=== PATIENT | female | born 1995 | race Asian ===

== ENCOUNTER 2017-05-20 03:45 | Emergency (ER) | payer BC, OTHER ==
[~2017-05-20] VITALS: Ht 170.2 cm; Wt 55.0 kg
[2017-05-20 03:55] VITALS: TEMP 36.6; Ht 170.2 cm; Wt 55.0 kg
[2017-05-20] MEDS ORDERED: SODIUM CHLORIDE 0.9% 1000ML 1,000 ML IV STA (04:04)
[2017-05-20] MEDS ORDERED: ONDANSETRON INJ 2 MG/ML 2 ML VIAL IV STA (04:04)
[2017-05-20 04:36] LABS: BASO % 0.2 %; BASO ABS # 0.03 K/uL (0-0.2); COMPLETE YES; EOS % 0.1 %; HEMATOCRIT 39.6 % (37-47); IG% 0.4 %; LYMPH % 8.4 %; LYMPH ABS # 1.37 K/uL (1.2-3.4); MEAN CELL VOLUME 90.8 fL (80-100); MEAN CORPUSCULAR HEMOGLOBIN 31.7 pg (25-34); MEAN CORPUSCULAR HGB CONC 34.8 g/dl (32-36); MEAN PLATELET VOLUME 9.7 fL (7.4-10.4); MONO % 4.7 %; NEUT % 86.2 %; PLATELET COUNT 237 K/uL (130-400); RED BLOOD COUNT 4.36 M/uL (4.2-5.4); WHITE BLOOD COUNT 16.37 K/uL (4.8-10.8)
[2017-05-20 04:50] LABS: URINE APPEARANCE CLEAR (CLEAR); URINE BILIRUBIN NEG (NEG); URINE COLOR YELLOW; URINE EPITHELIAL CELL AUTO >30 /lpf (0-5); URINE NITRITE NEG (NEG); URINE PH 6.5 (4.5-7.5); URINE SPECIFIC GRAVITY 1.022 (1.000-1.030); UROBILINOGEN NEG (NEG)
[2017-05-20 04:51] LABS: MANUAL MICROSCOPIC REQUIRED? NO; REVIEW REQ? NO
[2017-05-20 05:00] LABS: ALKALINE PHOSPHATASE 68 U/L (45-117); ALT/SGPT 23 U/L (12-78); AST/SGOT 19 U/L (15-37); BLOOD UREA NITROGEN 13 mg/dl (7-18); CALCIUM 8.8 mg/dl (8.5-10.1); CARBON DIOXIDE 26 mmol/L (21-32); CHLORIDE 108 mmol/L (98-107); CREATININE 0.55 mg/dl (0.60-1.20); GLUCOSE 97 mg/dl (70-99); POTASSIUM 3.8 mmol/L (3.5-5.1); SODIUM 141 mmol/L (136-145)
[2017-05-20 06:23] VITALS: BP 122/71; PULSE 76; O2SAT 98
--- NOTE | 2017-05-20 07:51 | EMERGENCY ROOM VISIT NOTE ---
History Report prepared by Nickolas: Geri Arvizu Under the Supervision of: Dr. Angeli Douglas D.O. First contact with patient: 03:53 Chief Complaint: ABDOMINAL PAIN Stated Complaint: ABDOMINAL PAIN History of Present Illness The patient is a 21 year old female who presents to the Emergency Room with complaints of worsening abdominal pain starting five hours ago. The patient states that she ate from the dining landry like normal this evening. She states that shortly after she started to feel bloated. She reports that she noticed the abdominal pain started then. She reports that she then started to have nausea. The patient states that she then started to dry heave. She states that she vomited, but it was a very tiny amount. She reports that she is having a difficult time not dry heaving. The patient states that she had food poisoning once like this that had her dry heaving every 20 minutes. She states that she is unsure if this is another case or from eating too much food. The patient denies diarrhea, fever, chills, leg cramping, and leg swelling. She notes her LNMP was yesterday. She currently rates her pain as a 6/10 in severity. Source of History: patient Onset: five hours ago Position: abdomen Symptom Intensity: 6/10 Quality: other (bloating) Timing: worsening Associated Symptoms: + nausea, + vomiting, No fevers, No chills, No diarrhea Note: The patient complains of dry heaving. The patient denies leg cramping and leg swelling. Review of Systems See HPI for pertinent positives & negatives. A total of 10 systems reviewed and were otherwise negative. Past Medical & Surgical Medical Problems: (1) No Known Active Medical Problems Family History Patient reports no known family medical history. Social History Marital Status: single Housing Status: lives with roommate Occupation Status: [employer] student Current/Historical Medications No Active Prescriptions or Reported Meds Allergies Coded Allergies: Fire Ant (Verified Allergy, Unknown, HIVES, 05/20/17) FACIAL SWELLING Physical Exam Vital Signs Date Time Temp Pulse Resp B/P (MAP) Pulse Ox O2 Delivery O2 Flow Rate FiO2 05/20/17 06:23 76 16 122/71 98 05/20/17 05:07 82 16 101/59 96 Room Air 05/20/17 03:55 36.6 81 18 114/69 96 Room Air Physical Exam HEENT: Head - normocephalic and atraumatic Pupils are equal, round, and reactive to light. Extraocular eye muscles are intact, and sclera are anicteric. Nose - moist nasal mucosa without discharge. Mouth - moist buccal mucosa. Oropharynx is nonerythematous and there is no tonsillar exudate or edema noted. Neck: Supple; no JVD, nuchal rigidity, cervical lymphadenopathy. Heart: Regular rate and rhythm. There is a normal S1 and S2 with no murmurs, clicks, or gallops appreciated. Lungs: Clear to auscultation bilaterally with no wheezes, rales, or rhonchi. Abdomen: Soft, nondistended, with good bowel sounds. Soreness with palpation in epigastrium and periumbilical region. There are no palpable pulsatile masses or hepatosplenomegaly. There is no guarding, rigidity, or rebound noted. Extremities: No evidence of cyanosis, clubbing, or edema. There are easily palpable peripheral pulses. Skin: warm and dry with good turgor and no rashes. Medical Decision & Procedures Laboratory Results 05/20/17 04:20 Red Blood Count 4.36, Mean Corpuscular Volume 90.8, Mean Corpuscular Hemoglobin 31.7, Mean Corpuscular Hemoglobin Concent 34.8, Mean Platelet Volume 9.7, Neutrophils (%) (Auto) 86.2, Lymphocytes (%) (Auto) 8.4, Monocytes (%) (Auto) 4.7, Eosinophils (%) (Auto) 0.1, Basophils (%) (Auto) 0.2, Neutrophils # (Auto) 14.12, Lymphocytes # (Auto) 1.37, Monocytes # (Auto) 0.77, Eosinophils # (Auto) 0.02, Basophils # (Auto) 0.03 05/20/17 04:20 Test 05/20/17 04:20 White Blood Count 16.37 K/uL (4.8-10.8) Red Blood Count 4.36 M/uL (4.2-5.4) Hemoglobin 13.8 g/dL (12.0-16.0) Hematocrit 39.6 % (37-47) Mean Corpuscular Volume 90.8 fL (80-100) Mean Corpuscular Hemoglobin 31.7 pg (25-34) Mean Corpuscular Hemoglobin Concent 34.8 g/dl (32-36) Platelet Count 237 K/uL (130-400) Mean Platelet Volume 9.7 fL (7.4-10.4) Neutrophils (%) (Auto) 86.2 % Lymphocytes (%) (Auto) 8.4 % Monocytes (%) (Auto) 4.7 % Eosinophils (%) (Auto) 0.1 % Basophils (%) (Auto) 0.2 % Neutrophils # (Auto) 14.12 K/uL (1.4-6.5) Lymphocytes # (Auto) 1.37 K/uL (1.2-3.4) Monocytes # (Auto) 0.77 K/uL (0.11-0.59) Eosinophils # (Auto) 0.02 K/uL (0-0.5) Basophils # (Auto) 0.03 K/uL (0-0.2) RDW Standard Deviation 41.3 fL (36.4-46.3) RDW Coefficient of Variation 12.3 % (11.5-14.5) Immature Granulocyte % (Auto) 0.4 % Immature Granulocyte # (Auto) 0.06 K/uL (0.00-0.02) Urine Color YELLOW Urine Appearance CLEAR (CLEAR) Urine pH 6.5 (4.5-7.5) Urine Specific [place] 1.022 (1.000-1.030) Urine Protein NEG (NEG) Urine Glucose (UA) NEG (NEG) Urine Ketones NEG (NEG) Urine Occult Blood NEG (NEG) Urine Nitrite NEG (NEG) Urine Bilirubin NEG (NEG) Urine Urobilinogen NEG (NEG) Urine Leukocyte Esterase SMALL (NEG) Urine WBC (Auto) 1-5 /hpf (0-5) Urine RBC (Auto) 5-10 /hpf (0-4) Urine Hyaline Casts (Auto) 1-5 /lpf (0-5) Urine Epithelial Cells (Auto) >30 /lpf (0-5) Urine Bacteria (Auto) NEG (NEG) Urine Test NEG (NEG) Anion Gap 7.0 mmol/L (3-11) Est Creatinine Clear Calc Drug Dose 142.8 ml/min Estimated GFR () > 150.0 Estimated GFR (Non- 136.0 BUN/Creatinine Ratio 23.0 (10-20) Calcium Level 8.8 mg/dl (8.5-10.1) Total Bilirubin 0.4 mg/dl (0.2-1) Direct Bilirubin mg/dl (0-0.2) Aspartate Amino Transf (AST/SGOT) 19 U/L (15-37) Alanine Aminotransferase (ALT/SGPT) 23 U/L (12-78) Alkaline Phosphatase 68 U/L (45-117) Total Protein 7.5 gm/dl (6.4-8.2) Albumin 4.1 gm/dl (3.4-5.0) Lipase 123 U/L (73-393) Chemistry Specimen Hemolysis Laboratory results per my review. Medications Administered Medications (Trade) Dose Ordered Sig/Paul Route Start Time Stop Time Status Last Admin Dose Admin Sodium Chloride 1,000 ml @ 999 mls/hr Q1H1M STAT IV 05/20/17 04:04 05/20/17 05:04 DC 05/20/17 04:32 999 MLS/HR Ondansetron HCl (Zofran Inj) 4 mg NOW STAT IV 05/20/17 04:04 05/20/17 04:05 DC 05/20/17 04:32 4 MG Procedure 0404: Ordered Zofran Inj 4 mg IV, NSS 1000 ml @ 999 mls/hr IV. ED Course 0356: Past medical records reviewed. The patient was evaluated in room B6. A complete history and physical exam was performed. An IV lock was initiated and labs are drones above. 0404: Ordered Zofran Inj 4 mg IV, NSS 1000 ml @ 999 mls/hr IV. 0504: I reevaluated the patient and she is doing well. 0540: Upon reevaluation, the patient feels much better. She drank some water. I reexamined her abdomen and it was benign. I discussed findings and results with her. She verbalized agreement of the treatment plan. The patient was discharged home. Medical Decision This is a 21-year-old female patient who presents to the emergency department with epigastric abdominal pain and vomiting. Differential diagnoses include food borne illness, gastritis, acute viral illness, pancreatitis. LABS: Negative Urine appears contaminated Normal renal function Normal glucose Normal LFTs Normal lipase White blood cell count elevated at 16.3 with 86% neutrophils The patient had a similar episode 2 years ago which was related to food poisoning. However, with the elevated white blood cell count, I believe this most likely is viral in origin. She had no further episodes of vomiting here in the emergency department. She has no diarrhea. The patient was encouraged to rest, take plenty of clear liquids and a bland diet. She will need to follow-up with [facility] if she has further episodes of vomiting or return here to the emergency department if she has increased epigastric abdominal pain. Medication Reconcilliation Current Medication List: was personally reviewed by me Blood Pressure Screening Patient's blood pressure: Normal blood pressure Blood pressure disposition: Did not require urgent referral Impression Primary Impression: Vomiting Scribe Attestation The scribe's documentation has been prepared under my direction and personally reviewed by me in its entirety. I confirm that the note above accurately reflects all work, treatment, procedures, and medical decision making performed by me. Departure Information Dispostion Home / Self-Care Prescriptions No Active Prescriptions or Reported Meds Forms HOME CARE DOCUMENTATION FORM, IMPORTANT VISIT INFORMATION Patient Instructions [facility] Additional Instructions Rest. take a bland diet and plenty of clear liquids Follow up with [facility] if you develop increased abdominal pain. Problem Qualifiers Primary Impression: Vomiting Vomiting type: unspecified Vomiting Intractability: non-intractable Nausea presence: with nausea Qualified Codes: R11.2 - Nausea with vomiting, unspecified
== END 2017-05-20 06:24 | disposition home or self-care (01) ==
LOC: EDBD 03:45 → C.EDB 03:47
DX: R11.2 Nausea with vomiting, unspecified (principal)